=== PATIENT | male | born 1930 | race Caucasian/White ===

== ENCOUNTER 2020-12-16 20:35 | Observation (INO) | payer MEDICARE, BC ==
[~2020-12-16] VITALS: Ht 180.3 cm; Wt 91.8 kg
[2020-12-16] MEDS ORDERED: ASPI-1053 PO (21:07)
[2020-12-16] MEDS ORDERED: FLO0.4C PO (21:07)
[2020-12-16] MEDS ORDERED: APIX5TAB3 PO (21:07)
[2020-12-16] MEDS ORDERED: OMEP40CA21 PO (21:07)
[2020-12-16] MEDS ORDERED: LEVO137T19 PO (21:07)
--- NOTE | 2020-12-16 23:40 | NUR ---
PT ASKING FOR FOOD . [facility]
[2020-12-16 23:44] LABS: TROPONIN I < 0.04 NG/ML (0.0-0.05)
[2020-12-17] VITALS (19 sets, daily range): BP systolic 128–170; BP diastolic 46–90
--- NOTE | 2020-12-17 | NUR ---
pt trop neg dr brown aware , pt given a chicken salad sandwitch pepsi and string cheese
[2020-12-17] MEDS ORDERED: mag hydrox/Alum hydrox/simeth 30ml oral suspension PO PRN (00:55)
[2020-12-17] MEDS ORDERED: acetaminophen 325mg tablet PO PRN ×2 (00:55)
[2020-12-17] MEDS ORDERED: morphine 2 MG/ML inj. syringe IV PRN ×2 (00:55)
[2020-12-17] MEDS ORDERED: magnesium hydroxide 30ml (MOM) UD suspension PO PRN (00:55)
[2020-12-17] MEDS ORDERED: ondansetron/PF 4mg/2ml inj IV PRN (00:55)
--- NOTE | 2020-12-17 03:18 | NUR ---
Patient in room ED 4. I have received report from Ericka RICHMOND in ED and had the opportunity to ask questions and will assume patient care when pt arrives to floor.
[2020-12-17] MEDS: normal saline 1000ml 1,000 ML IV SCH ×3 (03:54→20:55)
--- NOTE | 2020-12-17 06:00 | NUR ---
Patient in room PCU 3024. I have received report from Kelly RICHMOND and had the opportunity to ask questions and assume patient care.
--- NOTE | 2020-12-17 06:00 | NUR ---
Patient in room PCU 3024. I have received report from Kelly RICHMOND and had the opportunity to ask questions and assume patient care.
--- NOTE | 2020-12-17 06:37 | NUR ---
Problems reprioritized. Patient report given, questions answered & plan of care reviewed with Rosette RN.
[2020-12-17] MEDS: levoTHYROXINE 112mcg tablet PO SCH (08:12)
[2020-12-17] MEDS: tamsulosin 0.4mg capsule PO SCH (08:12)
[2020-12-17] MEDS: levoTHYROXINE 25mcg tablet PO SCH (08:12)
[2020-12-17] MEDS: pantoprazole 40mg Tablet.DR PO SCH (08:13)
[2020-12-17] MEDS: apixaban 5mg tablet PO SCH ×2 (08:13→20:16)
[2020-12-17] MEDS ORDERED: metoprolol tartrate 1mg/ml inj IV PRN (12:15)
[2020-12-17] MEDS ORDERED: nitroGLYCERIN 0.4mg SUBLingual tab SL PRN (12:15)
[2020-12-17] MEDS ORDERED: aminophylline 250mg/10ml inj. IV PRN (12:15)
[2020-12-17] MEDS ORDERED: regadenoson 0.4mg/5ml syringe IV ONE (12:15)
[2020-12-17 13:55] LABS: ALBUMIN 2.8 G/DL (3.4-5.0); ANION GAP 10 (8-16); BLOOD UREA NITROGEN 14 MG/DL (7-18); BUN/CREATININE RATIO 16.5 (5.4-32.0); CALCIUM 8.1 MG/DL (8.5-10.1); CHLORIDE 108 MMOL/L (99-107); CREATININE 0.85 MG/DL (0.60-1.10); GLUCOSE 86 MG/DL (70-104); POTASSIUM 4.2 MMOL/L (3.5-5.1); SODIUM 143 MMOL/L (135-145); TOTAL CARBON DIOXIDE 24.8 MMOL/L (24-32); TROPONIN I < 0.04 NG/ML (0.0-0.05); eGFR 85 ML/MIN
--- NOTE | 2020-12-17 18:00 | NUR ---
Problems reprioritized. Patient report given, questions answered & plan of care reviewed with Jennifer RICHMOND.
[2020-12-18 03:08] VITALS: BP 143/63
[2020-12-18] MEDS: normal saline 1000ml 1,000 ML IV SCH ×2 (05:40→07:40)
[2020-12-18 06:21] LABS: BASOPHILS % (AUTO) 0.4 % (0-1); EOSINOPHILS # (AUTO) 0.2 X10'3 (0-0.9); EOSINOPHILS % (AUTO) 2.4 % (0-6); HEMOGLOBIN 12.3 g/dl (14.0-17.9); LYMPHOCYTES # (AUTO) 1.4 X10'3 (1.1-4.8); LYMPHOCYTES % (AUTO) 18.8 % (21-51); MEAN CORPUSCULAR HEMOGLOBIN 31.7 PG (27.0-31.0); MEAN CORPUSCULAR VOLUME 93.2 FL (78-98); MEAN PLATELET VOLUME 7.5 FL (7.4-10.4); MONOCYTES # (AUTO) 0.8 X10'3 (0-0.9); MONOCYTES % (AUTO) 10.1 % (2-12); NEUTROPHILS # (AUTO) 5.2 X10'3 (1.8-7.7); NEUTROPHILS % (AUTO) 68.3 % (42-75); PLATELET COUNT 228 X10'3 (140-440); RED BLOOD COUNT 3.87 X10'6 (4.70-6.10); RED CELL DISTRIBUTION WIDTH 12.8 % (11.5-14.5); WHITE BLOOD COUNT 7.7 X10'3 (4.5-11.0)
--- NOTE | 2020-12-18 06:25 | NUR ---
Problems reprioritized. Patient report given, questions answered & plan of care reviewed with BASILIO RICHARDS.
--- NOTE | 2020-12-18 06:42 | NUR ---
Patient in room PCU 3024. I have received report from Miguel RICHMOND and had the opportunity to ask questions and assume patient care. Pt pleasant, converses easily. SBA to bathroom to void and brush teeth. no s/sx acute distress. NS running at 100ml/hr upon shift change.
[2020-12-18 06:43] LABS: ALBUMIN 2.7 G/DL (3.4-5.0); ANION GAP 10 (8-16); BLOOD UREA NITROGEN 13 MG/DL (7-18); BUN/CREATININE RATIO 12.9 (5.4-32.0); CALCIUM 8.1 MG/DL (8.5-10.1); CHLORIDE 109 MMOL/L (99-107); CREATININE 1.01 MG/DL (0.60-1.10); GLUCOSE 100 MG/DL (70-104); POTASSIUM 4.3 MMOL/L (3.5-5.1); SODIUM 145 MMOL/L (135-145); TOTAL CARBON DIOXIDE 26.3 MMOL/L (24-32); eGFR 70 ML/MIN
[2020-12-18 07:00] VITALS: BP 139/72
[2020-12-18] MEDS: levoTHYROXINE 112mcg tablet PO SCH (07:40)
[2020-12-18] MEDS: apixaban 5mg tablet PO SCH (07:41)
[2020-12-18] MEDS: levoTHYROXINE 25mcg tablet PO SCH (07:41)
[2020-12-18] MEDS: pantoprazole 40mg Tablet.DR PO SCH (07:41)
[2020-12-18] MEDS: tamsulosin 0.4mg capsule PO SCH (07:41)
[2020-12-18 11:00] VITALS: BP 136/68
--- NOTE | 2020-12-18 12:00 | NUR ---
Pt stable for discharge per MD orders. All discharge instructions reviewed with patient and all questions answered. Pt called Dr. Donnelly's office for follow up while still in room, and per Dr. Donnelly's office, pt must bring them his paperwork to be scheduled. Pt stated he will make his own follow up appointment, because he is heading to that medical office immediately from here after discharge. no new rx. PIV discontinued. cannula intact. senior care specialist discontinued. Belongings collected including pt's phone, wallet and two hearing aids. pt ambulated to the [facility] per his request, accompanied by this nurse, to leave in private vehicle. pt without dyspnea or dizziness upon discharge. no s/sx acute distress. pt verbalized understanding of discharge instructions and education.
== END 2020-12-18 11:57 | disposition home or self-care (01) ==
LOC: ER 20:36 → ED HOLD 12-17 00:54 → PCU 3S 12-17 03:35
PROVIDERS: ADMIT Internal Medicine; ATTEND Family Medicine
DX: R55 Syncope and collapse (principal); I10 Essential (primary) hypertension; I48.0 Paroxysmal atrial fibrillation; E03.9 Hypothyroidism, unspecified; N40.0 Benign prostatic hyperplasia without lower urinary tract symptoms; R53.83 Other fatigue; M19.031 Primary osteoarthritis, right wrist; M31.6 Other giant cell arteritis; Z79.01 Long term (current) use of anticoagulants; Z79.899 Other long term (current) drug therapy
CPT/HCPCS: 36415; 78452; 80048; 83880; 84484; 85025; 87081; 93005; 93017; 93306; 96361; 96374; 99284; A9500; G0378; J0280; J2785; J7030

== ENCOUNTER 2021-06-17 10:53 | Day surgery (SDC) | payer MEDICARE, BC ==
[2021-06-17] VITALS (9 sets, daily range): BP systolic 140–171; BP diastolic 74–92
[~2021-06-17] VITALS: Ht 180.3 cm; Wt 93.5 kg
[~2021-06-17 10:53] MED LIST: APIX5TAB3 PO; ASPI-1053 PO; FLO0.4C PO; LEVO137T19 PO; OMEP40CA21 PO
[2021-06-17] MEDS ORDERED: LORazepam 0.5 MG tablet PO PRN (11:15)
[2021-06-17] MEDS ORDERED: diphenhydrAMINE 25mg capsule PO PRN (11:15)
[2021-06-17] MEDS ORDERED: normal saline 1,000 ML IV SCH (11:15)
[2021-06-17] MEDS ORDERED: METO-384 PO (11:27)
[2021-06-17] MEDS ORDERED: ATOR10TA70 PO (11:27)
[2021-06-17] MEDS ORDERED: LIDOcaine/PRILOcaine 5gm cream TP ONE (11:50)
[2021-06-17] MEDS ORDERED: nitroGLYCERIN-Tridil 50MG/D5W 250 ML IV ONE (12:05)
[2021-06-17] MEDS ORDERED: verapamil 2.5 mg/ml inj IV ONE (12:05)
[2021-06-17] MEDS ORDERED: fentaNYL/PF 50MCG/1 ML 2ML syringe ONE (12:06)
[2021-06-17] MEDS ORDERED: midazolam 1 mg/ML 2ml injection ONE ×2 (12:06→13:57)
[2021-06-17] MEDS ORDERED: iohexol 350MG/ML 100ml bottle IV ONE ×2 (12:06→13:31)
[2021-06-17] MEDS ORDERED: LIDOcaine 1% (10mg/ml)w/preservative injection 20ml MDV ONE (12:06)
[2021-06-17] MEDS ORDERED: heparin 1,000unit/ml 10ml vial 10 ML ONE (12:06)
[2021-06-17] MEDS ORDERED: ticagrelor 90mg tablet ONE (13:59)
[2021-06-17] MEDS ORDERED: HYDROcodone/acetaminophen 10/325mg tab PO PRN (14:55)
[2021-06-17] MEDS ORDERED: ondansetron/PF 4mg/2ml inj IV PRN (14:55)
[2021-06-17] MEDS ORDERED: OXAZEpam 15mg capsule PO PRN (14:55)
[2021-06-17] MEDS ORDERED: nitroGLYCERIN 0.4mg SUBLingual tab SL PRN (14:55)
[2021-06-17] MEDS ORDERED: proCHLORperazine 10 MG/2 ml inj IV PRN (14:55)
[2021-06-17] MEDS ORDERED: HYDROcodone/acetaminophen 5mg/325mg tablet PO PRN (14:55)
[2021-06-17] MEDS ORDERED: metoprolol tartrate 25mg tablet PO SCH (20:00)
== END 2021-06-17 18:10 | disposition home or self-care (01) ==
LOC: SSTAY O 10:53
PROVIDERS: ATTEND Internal Medicine Interventional Cardiology
DX: R07.89 Other chest pain (principal); R94.39 Abnormal result of other cardiovascular function study; I25.10 Atherosclerotic heart disease of native coronary artery without angina pectoris; I48.0 Paroxysmal atrial fibrillation; E03.9 Hypothyroidism, unspecified; M19.90 Unspecified osteoarthritis, unspecified site; E78.5 Hyperlipidemia, unspecified; Z79.82 Long term (current) use of aspirin; Z79.899 Other long term (current) drug therapy
CPT/HCPCS: 82948; 92978; 93005; 93458; 99152; 99153; C1725; C1751; C1753; C1760; C1769; C1874; C1894; C9600; J1644; J2001; J2250; J3010; J7030; Q0163; Q9967; A4620; A5120; A6258; J3490

== ENCOUNTER 2021-06-22 10:40 | Emergency (ER) | payer MEDICARE, BC ==
[~2021-06-22] VITALS: Ht 180.3 cm; Wt 92.3 kg
[~2021-06-22 10:40] MED LIST changes: +ATOR10TA70 PO; +METO-384 PO
[2021-06-22 12:05] LABS: BASOPHILS # (AUTO) 0.1 X10'3 (0-0.2); BASOPHILS % (AUTO) 1.7 % (0-1); EOSINOPHILS # (AUTO) 0.2 X10'3 (0-0.9); EOSINOPHILS % (AUTO) 2.8 % (0-6); HEMATOCRIT 36.6 % (42.0-52.0); HEMOGLOBIN 12.4 g/dl (14.0-17.9); LYMPHOCYTES # (AUTO) 0.9 X10'3 (1.1-4.8); LYMPHOCYTES % (AUTO) 14.4 % (21-51); MEAN CORPUSCULAR HGB CONC 33.8 g/dL (33.0-36.5); MEAN CORPUSCULAR VOLUME 85.8 FL (78-98); MEAN PLATELET VOLUME 7.5 FL (7.4-10.4); MONOCYTES # (AUTO) 0.5 X10'3 (0-0.9); MONOCYTES % (AUTO) 8.4 % (2-12); NEUTROPHILS # (AUTO) 4.7 X10'3 (1.8-7.7); NEUTROPHILS % (AUTO) 72.7 % (42-75); PLATELET COUNT 233 X10'3 (140-440); RED BLOOD COUNT 4.26 X10'6 (4.70-6.10); RED CELL DISTRIBUTION WIDTH 14.8 % (11.5-14.5); WHITE BLOOD COUNT 6.5 X10'3 (4.5-11.0)
[2021-06-22 12:44] VITALS: BP 122/82
== END 2021-06-22 12:45 | disposition home or self-care (01) ==
LOC: ER 10:41
DX: T81.9XXA Unspecified complication of procedure, initial encounter (principal); I11.9 Hypertensive heart disease without heart failure; I10 Essential (primary) hypertension; Z79.899 Other long term (current) drug therapy
CPT/HCPCS: 36415; 85025; 85610; 93926; 99284